=== PATIENT | female | born 2000 | race African-American/Black ===

== ENCOUNTER 2022-10-22 14:18 | Emergency (ER) | payer BC, SELFPAY ==
[2022-10-22 14:25] VITALS: BP 104/65; PULSE 76; RESP 16; TEMP 36.4; O2SAT 100
--- NOTE | 2022-10-22 15:11 | ED.URI ---
HPI - URI/Sore Throat General Chief Complaint: Upper Respiratory Infection Stated Complaint: sore throat, cough Time Seen by Provider: 10/22/22 15:12 Source: patient, RN notes reviewed and old records reviewed Mode of arrival: ambulatory Limitations: no limitations History of Present Illness HPI Narrative: 21-year-old female who presents to [facility] with complaints sore throat, sinus congestion and drainage, cough for the past 2 days. 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 She has not taken any OTC medications for her symptoms. Patient is afebrile, denies any body aches, chills or any sweats. MD elicited complaint: cough and sore throat Onset (ago): day(s) (2) Severity: mild Pain scale (0-10): 2 Able to tolerate fluids by mouth: Yes Treatments prior to arrival: none Related Data Home Medications Medication Instructions Recorded Confirmed spironolactone 100 mg tablet 100 mg PO DIRECTED 10/22/22 10/22/22 Allergies Allergy/AdvReac Type Severity Reaction Status Date / Time No Known Allergies Allergy Verified 10/22/22 15:02 Review of Systems Review of Systems: CONSTITUTIONAL: Denies malaise, chills, sweats, or fever. EYES: Denies visual changes, redness, or discharge. ENT: Reports rhinorrhea, congestion,no sinus pain,no otalgia positive for sore throat. CARDIOVASCULAR: Denies chest pain, palpitations, or edema. RESPIRATORY: Reports dry cough.? Denies dyspnea. GASTROINTESTINAL: Denies abdominal pain, nausea, vomiting, diarrhea SKIN: Denies rash or itching. MUSCULOSKELETAL: Denies myalgia. NEUROLOGIC: Denies headache. All systems reviewed & are unremarkable except as noted in HPI and below PMFSH Past Medical History Medical History (Updated 10/23/22 @ 14:46 by Maria D Boykin NP) No pertinent past medical history Surgical History Surgical History (Updated 10/23/22 @ 14:43 by Maria D Boykin NP) No history of previous surgery Social History Social History (Updated 10/23/22 @ 14:43 by Maria D Boykin NP) Smoking status: Never smoker Alcohol intake: unknown Substance use type: does not use Occupation/Education: student Gender identity (if verbalized by the patient): Female Comments At time of signature, agree with nursing past medical, surgical, social and family history. There is no relevant family history pertinent to the presenting complaint Exam Narrative: GENERAL: Well-appearing, well-nourished, and in no acute distress. HEAD: Normocephalic EYES: PERRLA, conjunctivae clear ENT: Nares clear, turbinates edematous and erythematous, clear discharge. Mucous membranes moist. TM pearly maxwell with dull light reflex bilaterally; no tragal tenderness. Oropharynx erythematous without lesions. Tonsils not enlarged and without exudate, no drooling, no hoarseness, no trismus, uvula midline. NECK: Supple. No lymphadenopathy CHEST: Clear to auscultation, breath sounds equal. No wheezing, rhonchi, rales, or stridor. No respiratory distress, speaks in full sentences.dry cough, SAO2 100% on room air HEART: Regular rate and rhythm. No murmur heard. SKIN: Warm, dry, no rash. NEURO: Alert and oriented x3. PSYCH: Normal mood and affect Course Course Emergency Course: Patient is aware of diagnosis, understands and agrees to treatment plan.? Anticipatory guidance given.? Patient agrees to follow-up as directed and is aware of reasons to seek care at the emergency department. Portions of this record may have been created with voice recognition software Level of Care: Express Care Visit Vital Signs Vital signs: Vital Signs Temperature 36.4 C 10/22/22 14:25 Pulse Rate 76 10/22/22 14:25 Respiratory Rate 16 10/22/22 14:25 Blood Pressure 104/65 10/22/22 14:25 Pulse Oximetry 100 10/22/22 14:25 Oxygen Delivery Room Air 10/22/22 14:25 Temperature 36.4 C 10/22/22
--- NOTE | 2022-10-22 15:35 | PC.NURSE ---
1526- attempting to discharge pt, and whomever she is talking to on the phone told her that she needed a covid test also, before coming home ([facility]) to visit. informed pt that we can do a test and since today is only barely day 3 of symptoms that if it was negative that she should repeat the test in 2 days if she is still having symptoms. pt verbalized understanding.
== END 2022-10-22 15:52 | disposition home or self-care (01) ==
PROVIDERS: Emergency Provider Registered Nurse
DX: J02.9 Acute pharyngitis, unspecified (principal); Z20.822 Contact with and (suspected) exposure to COVID-19
CPT/HCPCS: 87081; 87426; 87880; 99213; C9803; G0463

== ENCOUNTER 2022-10-30 19:19 | Emergency (ER) | payer BC, SELFPAY ==
[2022-10-30 19:37] VITALS: BP 118/71; PULSE 82; RESP 20; TEMP 37.3; O2SAT 100
--- NOTE | 2022-10-30 19:38 | ED.URI ---
HPI - URI/Sore Throat General Chief Complaint: Upper Respiratory Infection Stated Complaint: sore throat, cough Source: patient and RN notes reviewed History of Present Illness HPI Narrative: 22-year-old female presents urgent care with complaints of a sore throat. Patient states she was congested and had a runny nose last week and was tested for strep and COVID which were both negative at that time. Patient states her congestion has improved her sore throat continues. Patient denies any ear pain, fevers, chills, vomiting, chest pain, or shortness of breath. Patient is taking Mucinex. Some parts of this dictation were generated by voice recognition software and may contain typographical and/or grammatical inaccuracies. Related Data Home Medications Medication Instructions Recorded Confirmed spironolactone 100 mg tablet 100 mg PO DIRECTED 10/22/22 10/22/22 Allergies Allergy/AdvReac Type Severity Reaction Status Date / Time No Known Allergies Allergy Verified 10/22/22 15:02 Review of Systems Review of Systems: CONSTITUTIONAL: Denies fever, chills, or sweats. EYES: Denies visual changes, redness, or discharge. ENT: sore throat CARDIOVASCULAR: Denies chest pain, palpitations, or edema. RESPIRATORY: cough GASTROINTESTINAL: Denies abdominal pain, nausea, vomiting, or diarrhea. GENITOURINARY: Denies dysuria or hematuria. SKIN: Denies rash or itching. MUSCULOSKELETAL: Denies back pain, joint pain, or myalgia. NEUROLOGIC: Denies headache, numbness, or weakness. [facility] Past Medical History Medical History (Updated 10/30/22 @ 19:50 by Linette Wu APRN) No pertinent past medical history Surgical History Surgical History (Updated 10/23/22 @ 14:43 by Maria D Boykin NP) No history of previous surgery Social History Social History (Updated 10/23/22 @ 14:43 by Maria D Boykin NP) Smoking status: Never smoker Alcohol intake: unknown Substance use type: does not use Occupation/Education: student Gender identity (if verbalized by the patient): Female Comments At the time of my signature, I reviewed and agree with the nursing past medical, surgical, social, and family history. There is no relevant family history pertinent to the patient complaint. Exam Narrative: GENERAL: This is a well-nourished, well-developed patient, in no apparent distress. HEAD: normocephalic, atraumatic. EYES: PERRL. Sclera clear/white. Vision is grossly intact. EARS: External ears normal, auditory canals clear and without drainage, TMs normal without perforation. Hearing grossly intact. NOSE: External nose normal with no obvious nasal discharge, nares without redness, no rhinorrhea. THROAT: Mucous membranes moist, posterior pharynx clear. NECK: Neck supple, non-tender without lymphadenopathy, masses or thyromegaly. CARDIOVASCULAR: Regular rate and rhythm without murmurs, gallops, or rubs. RESPIRATORY: Clear to auscultation. Breath sounds equal bilaterally. No wheezes, rales, or rhonchi. GASTROINTESTINAL: Abdomen soft, non-tender, nondistended. Bowel sounds are active. No hepato-splenomegaly, or palpable masses. No guarding. SKIN: warm, intact with no suspicious lesions or rash, good texture and turgor. NEURO: awake, alert, and oriented to person, place and time. There were no obvious focal neurologic abnormalities. Course Course Level of Care: Express Care Visit Vital Signs Vital signs: Vital Signs Temperature 99.2 F 10/30/22 19:37 Pulse Rate 82 10/30/22 19:37 Respiratory Rate 20 10/30/22 19:37 Blood Pressure 118/71 10/30/22 19:37 Pulse Oximetry 100 10/30/22 19:37 Temperature 99.2 F 10/30/22 19:37 Pulse Rate 82 10/30/22 19:37 Respiratory Rate 20 10/30/22 19:37 Blood Pressure 118/71 10/30/22 19:37 Pulse Oximetry 100 10/30/22 19:37 reviewed MDM - URI/Sore Throat MDM Narrative Medical decision making narrative: Rapid strep is negative in the office; amanda
== END 2022-10-30 20:12 | disposition home or self-care (01) ==
PROVIDERS: Emergency Provider Nurse Practitioner Family
DX: J02.9 Acute pharyngitis, unspecified (principal); Z20.822 Contact with and (suspected) exposure to COVID-19
CPT/HCPCS: 87081; 87426; 87880; 99213; C9803; G0463

== ENCOUNTER 2024-01-13 09:04 | Emergency (ER) | payer BC, SELFPAY ==
[2024-01-13 09:11] VITALS: BP 95/60; PULSE 62; RESP 16; TEMP 37.2; O2SAT 100
--- NOTE | 2024-01-13 09:21 | ED.URI ---
HPI - URI/Sore Throat General Chief Complaint: Upper Respiratory Infection Stated Complaint: Sore Throat Time Seen by Provider: 01/13/24 09:21 Source: patient Mode of arrival: ambulatory Limitations: no limitations History of Present Illness HPI Narrative: 23-year-old female presents with complaint of sore throat, swollen tonsils, fatigue, headache for 2 days. Prior to the symptoms patient was concerned she had sinus infection. Had sinus congestion. A Z-Jeff was sent to pharmacy but her sinus symptoms went away so she never picked it up. Z-Jeff is at pharmacy in [facility]. Was not able to get it transfer to a pharmacy closer. All systems reviewed and negative except as noted above. Related Data Home Medications Medication Instructions Recorded Confirmed spironolactone 100 mg tablet 100 mg PO DIRECTED 10/22/22 01/13/24 Allergies Allergy/AdvReac Type Severity Reaction Status Date / Time amoxicillin [From Amoxil] Allergy Hives Verified 01/13/24 09:26 Review of Systems Review of Systems: CONSTITUTIONAL: Denies fever, chills, or sweats. Reports fatigue. EYES: Denies visual changes, redness, or discharge. ENT: Denies rhinorrhea, congestion. Sore throat. Otalgia. CARDIOVASCULAR: Denies chest pain, palpitations, or edema. RESPIRATORY: Denies cough or dyspnea. GASTROINTESTINAL: Denies abdominal pain, nausea, vomiting, or diarrhea. GENITOURINARY: Denies dysuria or hematuria. SKIN: Denies rash or itching. MUSCULOSKELETAL: Denies back pain, joint pain, or myalgia. NEUROLOGIC: Reports headache. Denies numbness, or weakness. PSYCHIATRIC: Denies anxiety or depression. All other systems reviewed are negative, except as documented in HPI. [facility] Past Medical History Medical History (Updated 01/13/24 @ 09:47 by Nakita Garibay NP) No pertinent past medical history Surgical History Surgical History (Updated 10/23/22 @ 14:43 by Maria D Boykin NP) No history of previous surgery Social History Social History (Updated 10/23/22 @ 14:43 by Maria D Boykin NP) Smoking status: Never smoker Alcohol intake: unknown Substance use type: does not use Occupation/Education: student Gender identity (if verbalized by the patient): Female Comments At time of signature, agree with nursing past medical, surgical, social and family history. There is no relevant family history pertinent to the presenting complaint. Exam Narrative: GENERAL: This is a well-nourished, well-developed patient, in no apparent distress. HEAD: normocephalic, atraumatic. EYES: PERRL. Sclera clear/white. Vision is grossly intact. EARS: External ears normal, auditory canals clear and without drainage, TMs normal without perforation. Hearing grossly intact. NOSE: External nose normal with no obvious nasal discharge, nares without redness, no rhinorrhea. THROAT: Mucous membranes moist, tonsils 2+ bilaterally with exudates. Mild erythema. NECK: Neck supple, non-tender without lymphadenopathy, masses or thyromegaly. CARDIOVASCULAR: Regular rate and rhythm without murmurs, gallops, or rubs. RESPIRATORY: Clear to auscultation. Breath sounds equal bilaterally. No wheezes, rales, or rhonchi. SKIN: warm, Dry, intact with no suspicious lesions or rash, good texture and turgor. NEURO: awake, alert, and oriented to person, place and time. There were no obvious focal neurologic abnormalities. EXTREMITIES: No joint tenderness, effusion, or edema noted. Course Course Level of Care: Express Care Visit Vital Signs Vital signs: Vital Signs Temperature 37.2 C 01/13/24 09:11 Pulse Rate 62 01/13/24 09:11 Respiratory Rate 16 01/13/24 09:11 Blood Pressure 95/60 L 01/13/24 09:11 Pulse Oximetry 100 01/13/24 09:11 Temperature 37.2 C 01/13/24 09:11 Pulse Rate 62 01/13/24 09:11 Respiratory Rate 16 01/13/24 09:11 Blood Pressure 95/60 L 01/13/24 09:11 Pulse Oximetry 100 01/13/24 09:11 Lion
== END 2024-01-13 09:45 | disposition home or self-care (01) ==
PROVIDERS: Emergency Provider Nurse Practitioner Family
DX: J03.90 Acute tonsillitis, unspecified (principal)
CPT/HCPCS: 36416; 86308; 87081; 87880; 99213; G0463